=== PATIENT | male | born 2000 | race Caucasian/White ===

== ENCOUNTER 2024-01-14 06:42 | Emergency (ER) | payer OTHER ==
[2024-01-14] MEDS ORDERED: Ibuprofen 800 MG TAB ONE (07:21)
== END 2024-01-14 08:16 | disposition home or self-care (01) ==
LOC: CSHERS 06:42
DX: M65.4 Radial styloid tenosynovitis [de Quervain] (principal); F17.210 Nicotine dependence, cigarettes, uncomplicated